=== PATIENT | female | born 2000 | race African-American/Black ===

== ENCOUNTER 2025-02-10 16:00 | Emergency (ER) | payer MEDICAID ==
[~2025-02-10] VITALS: Ht 160 cm; Wt 59.0 kg
[~2025-02-10 16:00] MED LIST: IBUP-2030 MT
[2025-02-10 16:06] VITALS: O2SAT 99
[2025-02-10 16:08] VITALS: BP 113/67; PULSE 86; RESP 16; TEMP 36.7; O2SAT 100
[2025-02-10] MEDS: BACITRACIN ZINC OINT UDPKT TOP ONE (21:05)
[2025-02-10] MEDS: IBUPROFEN 600MG TABLET PO ONE (21:07)
[2025-02-10] MEDS ORDERED: CEPH500C2 MT (22:28)
== END 2025-02-10 22:45 | disposition home or self-care (01) ==
LOC: ER 16:00
DX: S61.411A Laceration without foreign body of right hand, initial encounter (principal); I10 Essential (primary) hypertension; V47.5XXA Car driver injured in collision with fixed or stationary object in traffic accident, initial encounter; Y93.89 Activity, other specified; Y92.89 Other specified places as the place of occurrence of the external cause; Y99.8 Other external cause status
CPT/HCPCS: 81025; 73110; 99283; Z7610